=== PATIENT | female | born 1960 | race Caucasian/White ===

== ENCOUNTER 2016-05-20 16:48 | Outpatient (CLI) | payer MEDICARE, MEDICAID ==
[2015-04-25 20:57] VITALS: BP 105/58
[2016-05-20 17:08] LABS: BASOPHILS % 0.7 (0.0-1.5); EOSINOPHILS % 4.1 % (0.0-6.8); LYMPHOCYTES # 2.6 # k/uL (0.6-4.0); MEAN CORPUSCULAR HEMOGLOBIN 18.3 pg (28.0-34.0); MONOCYTES # 0.3 # k/uL (0.0-0.9); MONOCYTES % 3.9 % (0.0-11.0); NEUTROPHILS # 3.8 # k/uL (1.4-7.7)
[2016-05-20 17:37] LABS: eGFR (African) > 60; eGFR (Non-African) > 60
== END 2016-05-20 16:50 ==
LOC: LAB 16:48
PROVIDERS: ATTEND Family Medicine
DX: D64.9 Anemia, unspecified (principal); I10 Essential (primary) hypertension; I25.10 Atherosclerotic heart disease of native coronary artery without angina pectoris; E78.00 Pure hypercholesterolemia, unspecified
CPT/HCPCS: 36415; 80053; 80061; 85025

== ENCOUNTER 2016-05-24 14:19 | Outpatient (CLI) | payer MEDICARE, MEDICAID ==
[2015-04-25 20:57] VITALS: BP 105/58
== END 2016-05-24 14:25 ==
LOC: CARD 14:19
PROVIDERS: ATTEND Internal Medicine Cardiovascular Disease
DX: I25.10 Atherosclerotic heart disease of native coronary artery without angina pectoris (principal)
CPT/HCPCS: G0463

== ENCOUNTER 2016-06-14 11:31 | Outpatient (CLI) | payer MEDICARE, OTHER ==
[2015-04-25 20:57] VITALS: BP 105/58
== END 2016-06-14 11:32 ==
LOC: CARD 11:31
PROVIDERS: ATTEND Internal Medicine Cardiovascular Disease
DX: J44.9 Chronic obstructive pulmonary disease, unspecified (principal); R06.02 Shortness of breath
CPT/HCPCS: G0463

== ENCOUNTER 2016-06-24 15:10 | Outpatient (CLI) | payer MEDICARE, MEDICAID ==
[2015-04-25 20:57] VITALS: BP 105/58
[2016-06-24 16:02] LABS: BASOPHILS % 0.6 (0.0-1.5); MEAN CORPUSCULAR HEMOGLOBIN 18.3 pg (28.0-34.0); MEAN CORPUSCULAR VOLUME 74.8 fl (80.0-100.0)
[2016-06-24 16:17] LABS: EOSINOPHILS % 2.4 % (0.0-6.8); MONOCYTES % 3.1 % (0.0-11.0)
[2016-06-24 16:18] LABS: ANISOCYTOSIS 1+ (NEGATIVE); HYPOCHROMASIA 2+ (NEGATIVE)
--- NOTE | 2016-06-24 20:17 | Diagnostic Imaging Report ---
VALERIANO LEWIS [facility] [address] [facility] [address] [address] Report Submission Date: Jun 24, 2016 4:32:29 PM CDT Patient Study Name: GEOVANNA VORA Date: Jun 24, 2016 3:40:09 PM CDT Modality Type: CR Gender: F Description: CHEST : 64 Institution: [facility] Physician: VALERIANO LEWIS Chest 2 views History: Restrictive lung disease and shortness of breath Findings: Cardiomegaly and pulmonary vascular congestion are observed. Bilateral diffuse reticular lung opacity is observed. There is no confluent infiltrate or pleural effusion. The above findings are new since the prior exam. Impression: 1. Cardiomegaly and pulmonary vascular congestion are new since April 25, 2015. 2. New diffuse reticular opacity. Differential includes edema, interstitial lung disease, and bronchitis. Electronically signed on Jun 24, 2016 4:32:29 PM CDT by: Piero NIX
[2016-06-25 02:31] LABS: RETIC ABSOLUTE COUNT 127.9 thou/uL (30.00-100.00)
== END 2016-06-24 15:11 ==
LOC: LAB 15:10
PROVIDERS: ATTEND Family Medicine
DX: D50.9 Iron deficiency anemia, unspecified (principal); R63.5 Abnormal weight gain; G62.9 Polyneuropathy, unspecified; J98.4 Other disorders of lung
CPT/HCPCS: 36415; 71020; 83540; 83655; 83880; 84443; 85025; 85045

== ENCOUNTER 2016-07-12 10:45 | Outpatient (CLI) | payer MEDICARE, MEDICAID ==
[2015-04-25 20:57] VITALS: BP 105/58
[2016-07-12] MEDS ORDERED: SALINE FLUSH 10 ML DISP.SYRIN IVF ONE (11:00)
[2016-07-12] MEDS ORDERED: 0.9 % SODIUM CHLORIDE 50 ML IV.SOLN IV ONE (11:00)
[2016-07-12] MEDS ORDERED: IRON SUCROSE COMPLEX 20 MG/ML 10ML VIAL IV ONE (11:00)
[2016-07-12] MEDS ORDERED: IRON SUCROSE COMPLEX 200 MG in 0.9 % SODIUM CHLORIDE 50 ML IV SCH (11:00)
== END 2016-07-12 10:46 ==
LOC: INF 10:45
PROVIDERS: ATTEND Family Medicine
DX: D50.9 Iron deficiency anemia, unspecified (principal)
CPT/HCPCS: 96365; J1756; S1016

== ENCOUNTER 2016-07-12 11:38 | Outpatient (CLI) | payer MEDICARE, MEDICAID ==
[2015-04-25 20:57] VITALS: BP 105/58
== END 2016-07-12 11:40 ==
LOC: CARD 11:38
PROVIDERS: ATTEND Internal Medicine Cardiovascular Disease
DX: J44.9 Chronic obstructive pulmonary disease, unspecified (principal)
CPT/HCPCS: G0463

== ENCOUNTER 2016-07-15 13:20 | Outpatient (CLI) | payer MEDICARE, MEDICAID ==
[2015-04-25 20:57] VITALS: BP 105/58
[2016-07-15] MEDS ORDERED: IRON SUCROSE COMPLEX 20 MG/ML 10ML VIAL IV ONE (13:30)
[2016-07-15] MEDS ORDERED: SALINE FLUSH 10 ML DISP.SYRIN IVF ONE (13:30)
[2016-07-15] MEDS ORDERED: 0.9 % SODIUM CHLORIDE 100 ML IV.SOLN IV ONE (13:30)
[2016-07-15] MEDS ORDERED: IRON SUCROSE COMPLEX 200 MG in 0.9 % SODIUM CHLORIDE 100 ML IV SCH (14:00)
== END 2016-07-15 13:21 ==
LOC: INF 13:20
PROVIDERS: ATTEND Family Medicine
DX: D50.9 Iron deficiency anemia, unspecified (principal)
CPT/HCPCS: 96365; J1756; S1016

== ENCOUNTER 2016-07-18 13:21 | Outpatient (CLI) | payer MEDICARE, MEDICAID ==
[2015-04-25 20:57] VITALS: BP 105/58
== END 2016-07-18 13:22 ==
LOC: RT 13:21
PROVIDERS: ATTEND Internal Medicine Cardiovascular Disease
DX: I50.9 Heart failure, unspecified (principal)
CPT/HCPCS: 94620; 94761

== ENCOUNTER 2016-07-18 13:25 | Outpatient (CLI) | payer MEDICARE, MEDICAID ==
[2015-04-25 20:57] VITALS: BP 105/58
[2016-07-18] MEDS ORDERED: SALINE FLUSH 10 ML DISP.SYRIN IVF ONE (14:00)
[2016-07-18] MEDS ORDERED: IRON SUCROSE COMPLEX 200 MG in 0.9 % SODIUM CHLORIDE 50 ML IV SCH (14:00)
[2016-07-18] MEDS ORDERED: IRON SUCROSE COMPLEX 20 MG/ML 10ML VIAL IV ONE (14:00)
[2016-07-18] MEDS ORDERED: 0.9 % SODIUM CHLORIDE 50 ML IV.SOLN IV ONE (14:00)
== END 2016-07-18 13:26 ==
LOC: INF 13:25
PROVIDERS: ATTEND Family Medicine
DX: D50.9 Iron deficiency anemia, unspecified (principal)
CPT/HCPCS: 96365; J1756; S1016

== ENCOUNTER 2016-07-20 11:52 | Outpatient (CLI) | payer MEDICARE, MEDICAID ==
[2015-04-25 20:57] VITALS: BP 105/58
[2016-07-20] MEDS ORDERED: 0.9 % SODIUM CHLORIDE 50 ML IV.SOLN IV ONE (12:00)
[2016-07-20] MEDS ORDERED: SALINE FLUSH 10 ML DISP.SYRIN IVF ONE (12:00)
[2016-07-20] MEDS ORDERED: IRON SUCROSE COMPLEX 200 MG in 0.9 % SODIUM CHLORIDE 50 ML IV SCH (12:00)
[2016-07-20] MEDS ORDERED: IRON SUCROSE COMPLEX 20 MG/ML 10ML VIAL IV ONE (12:00)
[2016-07-22] MEDS ORDERED: 0.9 % SODIUM CHLORIDE 50 ML IV ONE (13:00)
[2016-07-22] MEDS ORDERED: IRON SUCROSE COMPLEX 200 MG in 0.9 % SODIUM CHLORIDE 50 ML IV ONE (13:00)
== END 2016-07-20 11:53 ==
LOC: INF 11:52
PROVIDERS: ATTEND Family Medicine
DX: D50.9 Iron deficiency anemia, unspecified (principal)
CPT/HCPCS: 96365; J1756; S1016

== ENCOUNTER 2016-07-22 13:18 | Outpatient (CLI) | payer MEDICARE, OTHER ==
[2015-04-25 20:57] VITALS: BP 105/58
[2016-07-22] MEDS ORDERED: 0.9 % SODIUM CHLORIDE 50 ML IV.SOLN IV ONE (13:30)
[2016-07-22] MEDS ORDERED: SALINE FLUSH 10 ML DISP.SYRIN IVF ONE (13:30)
[2016-07-22] MEDS ORDERED: IRON SUCROSE COMPLEX 20 MG/ML 10ML VIAL IV ONE (13:30)
[2016-07-22] MEDS ORDERED: IRON SUCROSE COMPLEX 200 MG in 0.9 % SODIUM CHLORIDE 50 ML IV ONE (14:00)
== END 2016-07-22 13:20 ==
LOC: INF 13:18
PROVIDERS: ATTEND Family Medicine
DX: D50.9 Iron deficiency anemia, unspecified (principal)
CPT/HCPCS: 96365; J1756; S1016

== ENCOUNTER 2016-08-09 10:48 | Outpatient (CLI) | payer MEDICARE, OTHER ==
[2015-04-25 20:57] VITALS: BP 105/58
== END 2016-08-09 10:50 ==
LOC: CARD 10:48
PROVIDERS: ATTEND Internal Medicine Cardiovascular Disease
DX: I25.10 Atherosclerotic heart disease of native coronary artery without angina pectoris (principal)
CPT/HCPCS: G0463

== ENCOUNTER 2016-08-09 13:39 | Outpatient (CLI) | payer MEDICARE, MEDICAID ==
[2015-04-25 20:57] VITALS: BP 105/58
[2016-08-09 13:52] LABS: BASOPHILS % 0.9 (0.0-1.5); MEAN CORPUSCULAR VOLUME 85.5 fl (80.0-100.0); MONOCYTES % 4.3 % (0.0-11.0)
== END 2016-08-09 13:40 ==
LOC: LAB 13:39
PROVIDERS: ATTEND Family Medicine
DX: D50.0 Iron deficiency anemia secondary to blood loss (chronic) (principal)
CPT/HCPCS: 36415; 83540; 85025

== ENCOUNTER 2016-08-22 12:17 | Outpatient (CLI) | payer MEDICARE, MEDICAID ==
[2015-04-25 20:57] VITALS: BP 105/58
--- NOTE | 2016-08-23 14:44 | Diagnostic Imaging Report ---
ELSA PRATHER [facility] [place] [facility] [address] [facility] [address] [place], [place]. [address] Report Submission Date: Aug 22, 2016 2:28:22 PM CDT Patient Study Name: GEOVANNA VORA Date: Aug 22, 2016 12:26:40 PM CDT Modality Type: CT\SR Gender: F Description: CT CHEST W/O CONTRAST : 64 Institution: [facility] Physician: ELSA PRATHER Examination: High-resolution CT chest. History: Pulmonary hypertension. Pulmonary fibrosis. Comparison exams: Plain film chest reports June 2016 and 25 April 2015. Technique: CT chest high-resolution noncontrast examination. Findings: Significant peripheral and bibasilar parenchymal scarring and interstitial thickening. Calcified granuloma at the right lung base adjacent to the diaphragm. No evidence for parenchymal spiculation or suspicious nodular density. Anterior mediastinum and mykel without suspicious mass though sensitivity is reduced on a noncontrast examination. Right hilar granuloma. Atherosclerotic disease involving the thoracic aorta. No aneurysm. No cardiac enlargement. Mild thickening of the anterior pericardium. Osseous structures demonstrate mild degenerative changes. No lytic or blastic foci. Lower neck structures without gross a regularity. No axillary region pathologic adenopathy. Impression: Chronic interstitial fibrotic changes, correlate with any underlying pulmonary condition. No evidence for pulmonary mass lesion. Electronically signed on Aug 22, 2016 2:28:22 PM CDT by: Reinaldo NIX
== END 2016-08-22 12:18 ==
LOC: RAD 12:17
PROVIDERS: ATTEND Internal Medicine Cardiovascular Disease
DX: I50.9 Heart failure, unspecified (principal); I27.2 Other secondary pulmonary hypertension; J84.10 Pulmonary fibrosis, unspecified
CPT/HCPCS: 71250

== ENCOUNTER 2016-09-28 13:35 | Outpatient (CLI) | payer MEDICARE, OTHER ==
[2015-04-25 20:57] VITALS: BP 105/58
[2016-09-28 13:56] LABS: BASOPHILS % 1.2 (0.0-1.5); MEAN CORPUSCULAR VOLUME 85.1 fl (80.0-100.0); MONOCYTES % 4.1 % (0.0-11.0); NEUTROPHILS # 4.5 # k/uL (1.4-7.7)
== END 2016-09-28 13:36 ==
LOC: LAB 13:35
PROVIDERS: ATTEND Family Medicine
DX: D50.0 Iron deficiency anemia secondary to blood loss (chronic) (principal)
CPT/HCPCS: 36415; 85025

== ENCOUNTER 2016-11-08 13:27 | Outpatient (CLI) | payer MEDICARE, OTHER ==
[2015-04-25 20:57] VITALS: BP 105/58
== END 2016-11-08 13:30 ==
LOC: CARD 13:27
PROVIDERS: ATTEND Internal Medicine Cardiovascular Disease
DX: I50.9 Heart failure, unspecified (principal); I10 Essential (primary) hypertension; E78.5 Hyperlipidemia, unspecified; F17.210 Nicotine dependence, cigarettes, uncomplicated
CPT/HCPCS: G0463

== ENCOUNTER 2017-06-20 10:51 | Outpatient (CLI) | payer MEDICARE, OTHER ==
[2015-04-25 20:57] VITALS: BP 105/58
== END 2017-06-20 10:52 ==
LOC: CARD 10:51
PROVIDERS: ATTEND Internal Medicine Cardiovascular Disease
DX: I27.81 Cor pulmonale (chronic) (principal); I25.10 Atherosclerotic heart disease of native coronary artery without angina pectoris; I10 Essential (primary) hypertension; E78.5 Hyperlipidemia, unspecified; Z72.0 Tobacco use; I70.1 Atherosclerosis of renal artery
CPT/HCPCS: G0463

== ENCOUNTER 2017-11-23 13:37 | Outpatient (CLI) | payer MEDICARE, MEDICAID ==
[2015-04-25 20:57] VITALS: BP 105/58
[2017-11-23 13:56] LABS: BASOPHILS % 0.8 (0.0-1.5); EOSINOPHILS % 2.3 % (0.0-6.8); MEAN CORPUSCULAR HEMOGLOBIN 27.2 pg (28.0-34.0); MONOCYTES % 2.5 % (0.0-11.0); NEUTROPHILS # 3.5 # k/uL (1.4-7.7)
[2017-11-23 14:14] LABS: eGFR (Non-African) > 60
== END 2017-11-23 13:40 ==
LOC: LAB 13:37
PROVIDERS: ATTEND Family Medicine
DX: I10 Essential (primary) hypertension (principal); I25.10 Atherosclerotic heart disease of native coronary artery without angina pectoris; D50.0 Iron deficiency anemia secondary to blood loss (chronic); D64.9 Anemia, unspecified
CPT/HCPCS: 36415; 80053; 80061; 83540; 85025

== ENCOUNTER 2017-12-19 12:56 | Outpatient (CLI) | payer MEDICARE, OTHER ==
[2015-04-25 20:57] VITALS: BP 105/58
[2017-12-20 11:02] LABS: BASO % 1.3 % (0.0-1.5); EOS % 2.7 % (0.0-6.8); LYMPH ABS # 2.63 thou/uL (0.60-4.00); MCH. 28.4 pg (28.0-34.0); MCV 87.2 fL (80.0-100.0); MONOCYTE ABS # 0.25 thou/uL (0.00-0.90); PLATELET COUNT 166 thou/uL (130-400)
== END 2017-12-19 12:58 ==
LOC: LAB 12:56
PROVIDERS: ATTEND Physician Assistant
DX: D50.9 Iron deficiency anemia, unspecified (principal)
CPT/HCPCS: 36415; 83540; 85025